=== PATIENT | male | born 1985 | race Two or more races ===

== ENCOUNTER 2024-06-04 02:19 | Emergency (ER) | payer MEDICAID, SELFPAY ==
[2024-06-04 02:20] VITALS: BMI 30.7
[2024-06-04 02:25] VITALS: BP 134/82; PULSE 85; RESP 20; TEMP 36.8; O2SAT 97
--- NOTE | 2024-06-04 02:37 | EDRME_ITS ---
Rapid Medical Screening Exam RME Arrival date/time: 06/04/24 02:19 29-year-old male presents emergency department complaining of abdominal distention and burning after having endoscopy with biopsies 1 week ago in [place]. Chief Complaint: Abdominal Pain Time Seen by Provider: 06/04/24 02:26 Vital signs: Vital Signs Temperature 98.2 F 06/04/24 02:25 Pulse Rate 85 06/04/24 02:25 Respiratory Rate 20 06/04/24 02:25 Blood Pressure 134/82 H 06/04/24 02:25 Pulse Oximetry (%) 97 06/04/24 02:25 Oxygen Delivery Method Room Air 06/04/24 02:25 Vital signs reviewed by provider: Yes
[2024-06-04] MEDS: FAMOTIDINE 20 MG TABLET 40 MG PO (02:51)
[2024-06-04] MEDS: MG HYD/AL HYD/SIME (Maalox Reg) SUSP 30 ML UDC PO (02:52)
[2024-06-04 02:57] LABS: Collection Type, Urine Clean Catch
[2024-06-04 03:00] LABS: Bilirubin,Urine Negative (Negative); Blood,Urine Negative (Negative); Clarity,Urine Clear (Clear/Hazy); Color,Urine Lt-Yellow (Lt Yel-Yel); Culture Indicated,Urine Not Indicated; Glucose, Urine Trace (Negative); Ketones,Urine Negative (Negative); Leukocyte Esterase,Urine Negative (Negative); Nitrite,Urine Negative (Negative); PH,Urine 6.5 (5.0-7.0); Protein,Urine Negative (Neg - Trace); RBC,Urine 4 /hpf (0-3); Specific Gravity,Urine 1.026 (1.001-1.035); Squamous Epithelial Cell,Urine < 1 /hpf (0-5); Urobilinogen,Urine Negative mg/dL (0.0-1.0); WBC,Urine 1 /hpf (0-5)
[2024-06-04 03:17] LABS: Basophils # (Auto) 0.1 Thou/mm3 (0.0-0.2); Basophils % (Auto) 1 % (0-2.5); Eosinophils # (Auto) 0.2 Thou/mm3 (0.0-0.5); Eosinophils % (Auto) 2 % (0-10); Hematocrit 44.9 % (41.0-53.0); Hemoglobin 15.5 g/dL (13.5-16.0); Immature Granulocytes % (Auto) 0 % (0-0); Immature Granulocytes Auto 0.02 Thou/mm3 (0.00-0.00); Lymphocytes # (Auto) 6.3 Thou/mm3 (1.0-4.8); Lymphocytes % (Auto) 52 % (10-50); Mean Corpuscular HGB Conc 34.5 g/dl (31.0-37.0); Mean Corpuscular Volume 84 fL (80-100); Monocytes # (Auto) 1.5 Thou/mm3 (0.0-0.8); Monocytes % (Auto) 12 % (0-12); Neutrophils # (Auto) 4.1 Thou/mm3 (1.8-7.7); Neutrophils % (Auto) 33 % (37-80); Nucleated Red Blood Cell % 0 /100 WBC (0); Platelet Count 350 Thou/mm3 (140-440); RDW Standard Deviation 40.9 fL (35.1-43.9); Red Blood Count 5.34 Miln/mm3 (4.50-5.90); White Blood Count 12.2 Thou/mm3 (3.8-10.6)
[2024-06-04 03:24] LABS: Amphetamine/Methamp Scrn,U Negative (Negative); Barbiturate Screen,Urine Negative (Negative); Benzodiazepines Screen,Urine Negative (Negative); Benzoylecgonine Screen, Ur Negative (Negative); Fentanyl Screen,Urine Negative (Negative); Opiate Screen,Urine Negative (Negative); THC Screen,Urine Negative (Negative)
[2024-06-04 04:02] LABS: Alanine Aminotransferase 50 U/L (10-49); Albumin, Serum 4.3 gm/dL (3.5-5.0); Albumin/Globulin Ratio 1.3 (1.2-2.2); Alkaline Phosphatase 359 U/L (46-116); Anion Gap 4 (7-16); Aspartate Amino Transferase 24 U/L (0-34); BUN/Creatinine Ratio 16 Ratio (12-20); Bilirubin,Total 0.3 mg/dL (0.3-1.2); Blood Urea Nitrogen 14 mg/dL (9-23); Calcium 10.5 mg/dL (8.3-10.6); Calcium (Corrected) 10.5 mg/dL (8.5-10.1); Carbon Dioxide 30.5 mMol/L (20.0-31.0); Chloride 104 mMol/L (98-107); Creatinine (Component) 0.9 mg/dL (0.6-1.3); Estimated Creatinine Clearance 126.9 mL/min (>60); Globulin 3.3 gm/dL (2.3-3.5); Glucose 187 mg/dL (74-106); Lipase 25 U/L (12-53); Osmolality,Calculated 281 (275-295); Potassium 4.7 mMol/L (3.4-5.1); Sodium 138 mMol/L (136-145); Total Protein 7.6 gm/dL (5.7-8.2); eGFR > 60 See Note
--- NOTE | 2024-06-04 04:11 | EDNOTE_ITS ---
ED Abdominal Pain RME/HPI General Chief Complaint: Abdominal Pain Stated complaint: ABD PAIN AFTER SURGERY Time seen by provider: 06/04/24 02:26 Arrival date/time: 06/04/24 02:19 29-year-old male presents emergency department complaining of abdominal distention and burning epigastric pain after having endoscopy with biopsies 1 week ago in [place]. Patient reports had endoscopy done which showed hiatal hernia. Patient denies any chills, fever, vomiting, or constipation. Source: patient Mode of arrival: ambulatory Limitations: no limitations RME / HPI RME / HPI narrative: 06/04/24 02:19 29-year-old male presents emergency department complaining of abdominal distention and burning after having endoscopy with biopsies 1 week ago in [place]. Related Data Previous Rx's ?Medication ?Instructions ?Recorded omeprazole 20 mg capsule,delayed 20 mg PO QDAY #30 caps 06/04/24 release simethicone 80 mg chewable tablet 80 mg PO QDAY PRN abdominal 06/04/24 distention #10 tabs Allergies Allergy/AdvReac Type Severity Reaction Status Date / Time No Known Allergies Allergy Verified 06/04/24 02:21 Review of Systems Review of Systems Systems Reviewed: All systems reviewed, normal except as documented Constitutional Constitutional: Reports system reviewed and no additional complaints, except as documented, Denies body ache(s), Denies chills and Denies fever(s) Eyes Eyes: Reports system reviewed and no additional complaints, except as documented and Denies change in vision ENT Ears, Nose, Mouth, and Throat: Reports system reviewed and no additional complaints, except as documented, Denies disequilibrium, Denies dizziness, Denies sore throat and Denies vertigo Cardiovascular Cardiovascular: Reports system reviewed and no additional complaints, except as documented, Denies chest pain and Denies dyspnea Respiratory Respiratory: Reports system reviewed and no additional complaints, except as documented, Denies chest congestion, Denies cough and Denies dyspnea Gastrointestinal Gastrointestinal: Reports system reviewed and no additional complaints, except as documented, Reports abdominal pain, Denies nausea and Denies vomiting Musculoskeletal Musculoskeletal: Reports system reviewed and no additional complaints, except as documented, Denies abnormal gait and Denies arthralgias Integumentary/Breasts Skin/Breast: Reports system reviewed and no additional complaints, except as documented, Denies erythema, Denies rash and Denies wounds Neurologic Neurologic: Reports system reviewed and no additional complaints, except as documented, Denies abnormal gait, Denies disequilibrium, Denies dizziness and Denies vertigo Past Medical History Social History SMOKING STATUS: Never smoker ED Exam General Limitations: Present no limitations General appearance: Present alert and in no apparent distress Head Head exam: Present atraumatic Eye Eye exam: Present normal appearance, PERRL and EOMI ENT ENT exam: Present normal exam, normal oropharynx and mucous membranes moist Neck Neck exam: Present normal inspection, full ROM and trachea midline Chest Chest inspection: Present normal inspection and symmetric chest wall rise Respiratory Respiratory exam: Present normal lung sounds bilaterally Cardiovascular Cardiovascular exam: Present regular rate, normal rhythm and normal heart sounds Abdominal Exam Abdominal exam: Present soft and normal bowel sounds Extremities Exam Extremities exam: Present normal inspection and full ROM Back Exam Back exam: Present normal inspection and full ROM Neurological Exam Neurological exam: Present alert, oriented X3 and CN II-XII intact Psychiatric Psychiatric exam: Present normal affect and normal mood Skin Skin exam: Present warm, dry, intact and normal color Course Quality Measures none Orders Category Date Time Status CBC Stat Lab 06/04/24 03:12 Completed CMP [Comprehensive Metabolic Panel] Stat Lab 06/04/24 03:12 Completed Drug Screen,Urine Stat Lab 06/04/24 02:48 Completed Lipase Stat Lab 06/04/24 03:12 Completed Urinalysis, C/S if Indicated Stat Lab 06/04/24 02:48 Completed Famotidine [Pepcid] Med 06/04/24 02:36 Discontinued 40 mg PO X1 ONE mg Hyd/Al Hyd/Angelina Susp [Maalox Susp] Med 06/04/24 02:36 Discontinued 30 ml PO X1 ONE Vital Signs Vital signs: Vital Signs Temperature 98.2 F 06/04/24 02:25 Pulse Rate 85 06/04/24 02:25 Respiratory Rate 20 06/04/24 02:25 Blood Pressure 134/82 H 06/04/24 02:25 Pulse Oximetry (%) 97 06/04/24 02:25 Oxygen Delivery Method Room Air 06/04/24 02:25 97% room air within normal limits Abdominal Pain MDM MDM Narrative MDM Narrative:: 29-year-old male presents emergency department complaining of abdominal distention and burning epigastric pain after having endoscopy with biopsies 1 week ago in [place]. Patient reports had endoscopy done which showed hiatal hernia. Patient denies any chills, fever, vomiting, or constipation. CBC mild leukocytosis 12.2. CMP was unremarkable. Urinalysis unremarkable for infection. Lipase within normal limits. Patient's abdomen is soft and nontender. Patient reported complete resolution of symptoms after given GI cocktail and Pepcid. Patient stable for discharge instructed to follow-up with GI specialist upon discharge and return to emergency department for any worsening symptoms or as needed. Patient data External records reviewed:: None Clinical information provided by:: patient Social determinants that could affect healthcare access:: none Patient has the following chronic illnesses:: None How is presenting disease/condition affected by chronic disease/condition?: no chronic disease Evaluation data The following diagnostics were reviewed and interpreted by me:: lab results Lab and/or radiology exams considered but not ordered:: Ordered Interpretation Summary: Interpreted by me Medications / Prescriptions Medications or Prescriptions considered but not ordered:: Order Medication administrations:: Medication Administration History Discontinued Medications Al Hydrox/Mg Hydrox/Simethicone (Mg Hyd/Al Hyd/Angelina (Maalox Reg) Susp 30 Ml Udc) 30 ml PO X1 ONE Stop: 06/04/24 02:37 Last Admin: 06/04/24 02:52 Dose: 30 ml Documented By: CVL Famotidine (Famotidine 20 Mg Tablet) 40 mg PO X1 ONE Stop: 06/04/24 02:37 Last Admin: 06/04/24 02:51 Dose: 40 mg Documented By: CVL Given Consultations Consultation(s) initiated? (list below): No Diagnosis Differential diagnosis abdominal pain: abdominal pain, acute appendicitis, calculus of kidney, constipation, diverticulitis, gastroenteritis, pancreatitis and small bowel obstruction Most likely diagnosis given after review of the tests above:: Abdominal pain Admission Indicated Admission indicated?: not indicated Admission Request Was there a request for admission?: No Disposition Plan Disposition Plan: Discharge Discharge Attestation Discharge Attestation: The patient and all family members were given an opportunity to ask questions and understood the discharge instructions. Discharge instructions specifically effects, indications for sooner follow up or return to the emergency department, and the expected course of current diagnosis. Patient condition: Stable Discharge Plan Plan Patient Disposition: HOME (Self Care) Disposition Comment: Stable Prescriptions/Referrals Prescriptions/Med Rec: New omeprazole 20 mg capsule,delayed release(DR/EC) 20 mg PO QDAY Qty: 30 0RF simethicone 80 mg tablet,chewable 80 mg PO QDAY PRN (Reason: abdominal distention) Qty: 10 0RF Referrals: Temporary Provider,ED [Primary Care Provider] - In 1 week Problem List Clinical Impression: Abdominal pain Patient/Caregiver Discharge Instructions Discharge Activity: activity as tolerated Education Materials: Abdominal Pain, ED GERD (Adult) Additional Instructions: Take medication as prescribed. Avoid eating spicy and fatty foods. Follow-up with GI specialist in 2 to 3 days. Return to emergency department for any worsening symptoms or as needed. Print Language: Ivorian Stand Alone Forms: Mireya Award Info., Patient Portal Info Letter PA/CARD PLACER Supervising Physician PA/CARD PLACER Supervising Physician: Dr. Cooper
== END 2024-06-04 04:20 | disposition home or self-care (01) ==
LOC: SERX 04:53
PROVIDERS: Emergency Provider Emergency Medicine
DX: R10.13 Epigastric pain (principal); R14.0 Abdominal distension (gaseous)
CPT/HCPCS: 36415; 80053; 80307; 81001; 83690; 85025; 99283; A9270

== ENCOUNTER 2024-08-26 05:31 | Emergency (ER) | payer MEDICAID, SELFPAY ==
[2024-08-26 05:34] VITALS: BMI 33.5
[2024-08-26 05:40] VITALS: BP 141/90; PULSE 96; RESP 18; TEMP 36.9; O2SAT 98
--- NOTE | 2024-08-26 06:12 | PD.EDURI ---
Upper Respiratory Inf. RME/HPI General Chief Complaint: Flu Like Symptoms Stated Complaint: COUGHING X 8 DAYS Time Seen by Provider: 08/26/24 06:11 Source: patient Arrival date/time: 08/26/24 05:31 39-year-old male with no known medical history presents to the emergency room with a chief complaint of a cough x 8 days. Patient states he tested positive for strep throat 4 days ago and has been on amoxicillin for the last 3 days. Mode of arrival: ambulatory Limitations: no limitations Related Data Previous Rx's ?Medication ?Instructions ?Recorded omeprazole 20 mg capsule,delayed 20 mg PO QDAY #30 caps 06/04/24 release simethicone 80 mg chewable tablet 80 mg PO QDAY PRN abdominal 06/04/24 distention #10 tabs acetaminophen 325 mg capsule 650 mg (2 x 325 mg) PO QID PRN 08/26/24 fever or pain 7 days #30 caps albuterol sulfate 90 mcg/actuation 2 inh inhalation Q6H PRN shortness 08/26/24 breath activated powder inhaler of breath or wheezing #1 ea benzonatate 100 mg capsule 100 mg PO BID PRN cough #14 caps 08/26/24 Allergies Allergy/AdvReac Type Severity Reaction Status Date / Time No Known Allergies Allergy Verified 08/26/24 05:32 Review of Systems Review of Systems Systems Reviewed: All systems reviewed, normal except as documented Constitutional Constitutional: Reports system reviewed and no additional complaints, except as documented, Reports fatigue, Denies fever(s), Denies headache(s) and Reports weakness Eyes Eyes: Reports system reviewed and no additional complaints, except as documented, Denies blurry vision and Denies change in vision ENT Ears, Nose, Mouth, and Throat: Reports system reviewed and no additional complaints, except as documented, Denies otalgia, Denies headache(s), Denies nasal congestion, Denies throat swelling and Denies vertigo Cardiovascular Cardiovascular: Reports system reviewed and no additional complaints, except as documented, Denies chest pain, Denies dyspnea and Denies dyspnea on exertion Respiratory Respiratory: Reports system reviewed and no additional complaints, except as documented, Denies chest congestion, Reports cough, Denies dyspnea, Denies dyspnea on exertion and Denies wheezing Gastrointestinal Gastrointestinal: Reports system reviewed and no additional complaints, except as documented, Denies abdominal pain, Denies cramping, Denies nausea and Denies vomiting Genitourinary Genitourinary: Reports system reviewed and no additional complaints, except as documented, Denies dysuria and Denies hematuria Musculoskeletal Musculoskeletal: Reports system reviewed and no additional complaints, except as documented and Denies back pain Integumentary/Breasts Skin/Breast: Reports system reviewed and no additional complaints, except as documented and Denies wounds Neurologic Neurologic: Reports system reviewed and no additional complaints, except as documented, Denies confusion, Denies headache(s), Denies lack of coordination, Denies vertigo and Reports weakness Psychiatric Psychiatric: Reports system reviewed and no additional complaints, except as documented, Denies anxiety, Denies confusion, Denies depression, Denies paranoia, Denies suicidal ideation and Denies tactile hallucinations Endocrine Endocrine: Reports system reviewed and no additional complaints, except as documented and Reports fatigue Hematologic/Lymphatic Hematologic/Lymphatic: Reports system reviewed and no additional complaints, except as documented and Denies lymphadenopathy Allergic/Immunologic Allergic/Immunologic: Reports system reviewed and no additional complaints, except as documented, Denies throat swelling, Denies urticaria and Denies wheezing Past Medical History Past Medical History CARDIAC: Negative Congestive Heart Failure RESPIRATORY: Negative Chronic Obstructive Pulmonary Disease (COPD) GENITOURINARY: Negative Renal Disease ENDOCRINE: Negative Diabetes Mellitus Type 1 or Diabetes Mellitus Type 2 Social History SMOKING STATUS: Never smoker ED Exam General Limitations: Present no limitations General appearance: Present alert and in no apparent distress Head Head exam: Present atraumatic Eye Eye exam: Present normal appearance, PERRL and EOMI ENT ENT exam: Present normal exam, normal oropharynx and mucous membranes moist Neck Neck exam: Present normal inspection, full ROM and trachea midline Chest Chest inspection: Present normal inspection and symmetric chest wall rise Respiratory Respiratory exam: Present normal lung sounds bilaterally; Absent respiratory distress, wheezes, stridor, accessory muscle use or prolonged expiratory phase Cardiovascular Cardiovascular exam: Present regular rate, normal rhythm and normal heart sounds Abdominal Exam Abdominal exam: Present soft and normal bowel sounds Extremities Exam Extremities exam: Present normal inspection and full ROM Back Exam Back exam: Present normal inspection and full ROM Neurological Exam Neurological exam: Present alert, oriented X3 and CN II-XII intact Psychiatric Psychiatric exam: Present normal affect and normal mood Skin Skin exam: Present warm, dry, intact and normal color Course Quality Measures none Orders Category Date Time Status Bedside COVID-19 Antigen Test NOW Care 08/26/24 06:11 Completed Bedside Influenza A&B Antigen Test NOW Care 08/26/24 06:11 Completed Vital Signs Vital signs: Vital Signs Temperature 98.5 F 08/26/24 05:40 Pulse Rate 96 08/26/24 05:40 Respiratory Rate 18 08/26/24 05:40 Blood Pressure 141/90 H 08/26/24 05:40 Pulse Oximetry (%) 98 08/26/24 05:40 O2 saturation 98% within normal limits Upper Respiratory Infection MDM Narrative MDM Narrative:: 39-year-old male with no known medical history presents to the emergency room with a chief complaint of a cough x 8 days. Patient states he tested positive for strep throat 4 days ago and has been on amoxicillin for the last 3 days. Patient is hemodynamically stable. The patient is afebrile not tachypneic and not tachycardic. O2 saturation is 98% on room air Physical examination shows clear bilateral lung sounds there is no wheezing or any abnormal breath sounds Patient tested negative for influenza and COVID-19. Patient is taking antibiotics for strep throat already he is on day 3 of amoxicillin. Patient's most likely diagnosis is an upper respiratory viral infection Patient was discharged and educated to follow-up with primary care provider in the next 24 to 48 hours and return to the emergency room for any evidence of worsening signs or symptoms Patient data External records reviewed:: [facility] previous records Clinical information provided by:: patient Social determinants that could affect healthcare access:: none Patient has the following chronic illnesses:: No chronic illness How is presenting disease/condition affected by chronic disease/condition?: no chronic disease Evaluation data The following diagnostics were reviewed and interpreted by me:: lab results and radiology exam(s) Lab and/or radiology exams considered but not ordered:: Labs and radiology exams considered and ordered Interpretation Summary: N/A Medications / Prescriptions Medications or Prescriptions considered but not ordered:: No medication given Medication administrations:: No medication given Consultations Consultation(s) initiated? (list below): No Diagnosis Upper Respiratory Differential Diagnosis: upper respiratory infection, sinusitis, viral infection, influenza and other (COVID-19) Most likely diagnosis given after review of the tests above:: Upper respiratory infection Admission Indicated Admission indicated?: not indicated Admission Request Was there a request for admission?: No Disposition Plan Disposition Plan: Discharge Discharge Attestation Discharge Attestation: The patient and all family members were given an opportunity to ask questions and understood the discharge instructions. Discharge instructions specifically effects, indications for sooner follow up or return to the emergency department, and the expected course of current diagnosis. Patient condition: Stable Discharge Plan Plan Patient Disposition: HOME (Self Care) Disposition Comment: Stable Prescriptions/Referrals Prescriptions/Med Rec: New acetaminophen 325 mg capsule 650 mg PO QID PRN (Reason: fever or pain) 7 Days Qty: 30 0RF benzonatate 100 mg capsule 100 mg PO BID PRN (Reason: cough) Qty: 14 0RF albuterol sulfate 90 mcg/actuation aerosol powdr breath activated 2 inh inhalation Q6H PRN (Reason: shortness of breath or wheezing) Qty: 1 0RF No Action omeprazole 20 mg capsule,delayed release(DR/EC) 20 mg PO QDAY Qty: 30 0RF simethicone 80 mg tablet,chewable 80 mg PO QDAY PRN (Reason: abdominal distention) Qty: 10 0RF Referrals: Tash Banuelos PA-C [Primary Care Provider] - In 1 week Problem List Clinical Impression: Upper respiratory infection, viral Patient/Caregiver Discharge Instructions Education Materials: ED URI, Viral, No Abx (Adult) Additional Instructions: Please follow-up with your primary care provider in the next 24 to 48 hours. You tested negative for influenza and COVID-19. You have an upper respiratory infection that is viral. Your primary care provider placed him on antibiotics for your strep throat, these antibiotics will also cover pneumonia. Continue to take your antibiotics until they are completed. The treatment for this is symptom management. Please continue to take Tylenol and ibuprofen for fever management. Please increase your oral fluid intake. For any evidence of worsening signs or symptoms please return to the emergency room immediately Print Language: Angolan Stand Alone Forms: Mireya Award Info., Patient Portal Info Letter PA/SHAMA Supervising Physician PA/SHAMA Supervising Physician: Dr. Newman
== END 2024-08-26 07:02 | disposition home or self-care (01) ==
PROVIDERS: Emergency Provider Emergency Medicine; PCP Physician Assistant
DX: J06.9 Acute upper respiratory infection, unspecified (principal)
CPT/HCPCS: 87400; 87811; 99283

== ENCOUNTER 2024-10-28 20:34 | Emergency (ER) | payer MEDICAID, SELFPAY ==
[2024-10-28 20:36] VITALS: BMI 32.3
--- NOTE | 2024-10-28 21:54 | PD.EDADDENDU ---
Emergency Room Addendum Addendum Narrative: I was told the patient eloped. Homer Golden MD
== END 2024-10-28 21:28 | disposition left against medical advice (07) ==
PROVIDERS: Emergency Provider Emergency Medicine
DX: Z53.21 Procedure and treatment not carried out due to patient leaving prior to being seen by health care provider (principal)